=== PATIENT | female | born 1985 | race Caucasian/White ===

== ENCOUNTER 2018-06-14 11:24 | Emergency (ER) | payer MEDICAID ==
[~2018-06-14 11:24] MED LIST: DOCU-116 PO; IBUP-2077 PO
[2018-06-14] MEDS ORDERED: CLINDAMYCIN HCL 150 MG CAP ONE (12:08)
[2018-06-14] MEDS ORDERED: HYDROCODONE/ACETAMINOPHEN 5/325 MG TAB ONE (12:08)
== END 2018-06-14 12:15 | disposition home or self-care (01) ==
LOC: EDH 11:24
DX: O26.892 Other specified pregnancy related conditions, second trimester (principal); K02.9 Dental caries, unspecified; Z79.899 Other long term (current) drug therapy; Z87.891 Personal history of nicotine dependence; Z3A.20 20 weeks gestation of pregnancy